=== PATIENT | female | born 1940 | race Caucasian/White ===

== ENCOUNTER 2017-08-31 20:53 | Emergency (ER) | payer MEDICARE ==
[2017-08-31 21:56] LABS: INFLUENZA A PATIENT NEGATIVE (NEGATIVE); INFLUENZA B PATIENT POSITIVE (NEGATIVE); OBC FLU VALID
[2017-08-31] MEDS ORDERED: IBUPROFEN 600 MG TABLET. PO (22:00)
[2017-08-31] MEDS: OSELTAMIVIR 75 MG CAPSULE PO (22:17)
[2017-08-31] MEDS: IBUPROFEN 600 MG TABLET. PO (22:18)
== END 2017-08-31 22:23 | disposition home or self-care (01) ==
LOC: ER 20:53
DX: J10.1 Influenza due to other identified influenza virus with other respiratory manifestations (principal); B34.9 Viral infection, unspecified; J44.9 Chronic obstructive pulmonary disease, unspecified; I10 Essential (primary) hypertension; F10.20 Alcohol dependence, uncomplicated
CPT/HCPCS: 87804; 87804-59; 99284